=== PATIENT | male | born 1930 | race African-American/Black ===

== ENCOUNTER 2016-12-29 14:14 | Inpatient (IN) | payer MEDICARE ==
[~2016-12-29] VITALS: Ht 175.3 cm; Wt 57.2 kg
[2016-12-29 14:14] VITALS: BP 127/61
[~2016-12-29 14:14] MED LIST: AMBIEN10 MG ORAL
[2016-12-29 14:19] VITALS: BP 127/61
--- NOTE | 2016-12-29 14:30 | Emergency Room Report ---
History of Present Illness General Chief Complaint: Overdose Source: Patient, EMS Present Illness HPI Patient is a 86-year-old male who brought in by EMS after reported overdose on Ambien. Patient reportedly had taken 5 Ambien several hours prior to arrival. Patient reported feeling like sleeping. The patient reports having taken medications as several hours. He denies any other coingestions. The patient states he is followed by Dr. Valladares Allergies: Coded Allergies: No Known Allergies (Unverified , 12/29/16) Patient History Past Medical History: see triage record Reviewed Nursing Documentation: PMH: Agreed, PSxH: Agreed Nursing Documentation-PMH Hx Hypertension: Yes Review of Systems All Other Systems: negative except mentioned in HPI Physical Exam Vital Signs Date Time Temp Pulse Resp B/P Pulse Ox O2 Delivery O2 Flow Rate FiO2 12/29/16 14:08 98.4 68 18 127/61 98 Room Air Sp02 EP Interpretation: reviewed, normal General Appearance: normal inspection, well appearing, no apparent distress, alert, GCS 15, thin, Chronically Ill Head: atraumatic ENT: normal ENT inspection, hearing grossly normal, normal voice Neck: normal inspection, full range of motion, supple, no bony tend Respiratory: normal inspection, lungs clear, normal breath sounds, no respiratory distress, no retraction, no wheezing Cardiovascular #1: regular rate, rhythm, no edema Gastrointestinal: normal inspection, normal bowel sounds, non tender, soft, no guarding, no hernia Genitourinary: no CVA tenderness Musculoskeletal: normal inspection, back normal, normal range of motion Neurologic: normal inspection, alert, oriented x3, responsive, correctional counselor/case manager III-XII nml as tested, speech normal Psychiatric: normal inspection, judgement/insight normal, mood/affect normal Skin: normal inspection, normal color, no rash Medical Decision Making Diagnostic Impression: Primary Impression: Drug overdose ER Course Patient presented for a reported medication overdose. Differential diagnosis included was not limited to polysubstance overdose, nontoxic overdose, suicidal thoughts, among others.Because of complexity of patient's case laboratory testing and imaging studies were ordered.Patient states that he is a DO NOT RESUSCITATE. The patient reportedly wanted to end his life. Patient was noted to have a initial abnormal blood pressure as well as normal respiratory rate. Patient was observed in the emergency department. Poison control was contacted and recommended supportive careDr. Cj Lagos was contacted for inpatient management due cardiac history. Dr. Verde was contacted for pyschiatric consult due to patients medication overdose. Labs Test 12/29/16 14:39 12/29/16 16:00 White Blood Count 11.4 K/UL (4.8-10.8) Red Blood Count 4.71 M/UL (4.70-6.10) Hemoglobin 14.3 G/DL (14.2-18.0) Hematocrit 44.4 % (42.0-52.0) Mean Corpuscular Volume 94 FL (80-99) Mean Corpuscular Hemoglobin 30.4 PG (27.0-31.0) Mean Corpuscular Hemoglobin Concent 32.3 G/DL (32.0-36.0) Red Cell Distribution Width 13.5 % (11.6-14.8) Platelet Count 146 K/UL (150-450) Mean Platelet Volume 8.3 FL (6.5-10.1) Neutrophils (%) (Auto) 90.1 % (45.0-75.0) Lymphocytes (%) (Auto) 5.6 % (20.0-45.0) Monocytes (%) (Auto) 3.9 % (1.0-10.0) Eosinophils (%) (Auto) 0.1 % (0.0-3.0) Basophils (%) (Auto) 0.4 % (0.0-2.0) Sodium Level 137 mEQ/L (135-145) Potassium Level 4.6 mEQ/L (3.4-4.9) Chloride Level 97 mEQ/L (98-107) Carbon Dioxide Level 28 mEQ/L (20-30) Anion Gap 12 (5-15) Blood Urea Nitrogen 33 mg/dL (7-23) Creatinine 1.6 mg/dL (0.7-1.2) Estimat Glomerular Filtration Rate mL/min (>60) Glucose Level 152 mg/dL (74-106) Calcium Level 9.5 mg/dL (8.6-10.2) Total Bilirubin 0.6 mg/dL (0.0-1.2) Aspartate Amino Transf (AST/SGOT) 15 U/L (5-40) Alanine Aminotransferase (ALT/SGPT) 8 U/L (3-41) Alkaline Phosphatase 55 U/L (40-129) Total Protein 7.7 g/dL (6.6-8.7) Albumin 4.1 g/dL (3.5-5.2) Globulin 3.6 g/dL Albumin/Globulin Ratio 1.1 (1.0-2.7) Salicylates Level < 1 mg/dL (10-30) Acetaminophen Level < 10 ug/mL (10-30) Serum Alcohol < 10 mg/dL Urine Color Pale yellow Urine Appearance Clear Urine pH 6 (4.5-8.0) Urine Specific [place] 1.020 (1.005-1.035) Urine Protein 3+ (NEGATIVE) Urine Glucose (UA) Negative (NEGATIVE) Urine Ketones Negative (NEGATIVE) Urine Occult Blood Negative (NEGATIVE) Urine Nitrite Negative (NEGATIVE) Urine Bilirubin Negative (NEGATIVE) Urine Urobilinogen Normal MG/DL (0.0-1.0) Urine Leukocyte Esterase Negative (NEGATIVE) Urine RBC 0-2 /HPF (0 - 0) Urine WBC 0-2 /HPF (0 - 0) Urine Squamous Epithelial Cells Occasional /LPF Urine Bacteria Occasional /HPF (NONE) Urine Opiates Screen Negative (NEGATIVE) Urine Barbiturates Screen Negative (NEGATIVE) Phencyclidine (PCP) Screen Negative (NEGATIVE) Urine Amphetamines Screen Negative (NEGATIVE) Urine Benzodiazepines Screen Negative (NEGATIVE) Urine Cocaine Screen Negative (NEGATIVE) Urine Marijuana (THC) Screen Negative (NEGATIVE) Last Vital Signs Date Time Temp Pulse Resp B/P Pulse Ox O2 Delivery O2 Flow Rate FiO2 12/29/16 14:21 71 18 Room Air 12/29/16 14:19 98.4 127/61 98 Status: unchanged Disposition: PLACE IN OBSERVATION Condition: Stanley Potter Dec 29, 2016 14:30
[2016-12-29 15:33] LABS: MEAN CORPUSCULAR HEMOGLOBIN 30.4 PG (27.0-31.0); MEAN CORPUSCULAR HGB CONC 32.3 G/DL (32.0-36.0); MEAN CORPUSCULAR VOLUME 94 FL (80-99); MEAN PLATELET VOLUME 8.3 FL (6.5-10.1); PLATELET COUNT 146 K/UL (150-450); RED BLOOD COUNT 4.71 M/UL (4.70-6.10); RED CELL DISTRIBUTION WIDTH 13.5 % (11.6-14.8); WHITE BLOOD COUNT 11.4 K/UL (4.8-10.8)
[2016-12-29 15:34] LABS: BASOPHILS % (AUTO) 0.4 % (0.0-2.0); EOSINOPHILS % (AUTO) 0.1 % (0.0-3.0); LYMPHOCYTES % (AUTO) 5.6 % (20.0-45.0); MONOCYTES % (AUTO) 3.9 % (1.0-10.0); NEUTROPHILS % (AUTO) 90.1 % (45.0-75.0)
[2016-12-29 15:41] LABS: ACETAMINOPHEN < 10 ug/mL (10-30); ALANINE AMINOTRANSFERASE 8 U/L (3-41); ALBUMIN/GLOBULIN RATIO 1.1 (1.0-2.7); ALCOHOL < 10 mg/dL; ANION GAP 12 (5-15); ASPARTATE AMINO TRANSFERASE 15 U/L (5-40); CALCIUM 9.5 mg/dL (8.6-10.2); CARBON DIOXIDE 28 mEQ/L (20-30); CHLORIDE 97 mEQ/L (98-107); CREATININE 1.6 mg/dL (0.7-1.2); HEMOLYSIS 5; POTASSIUM 4.6 mEQ/L (3.4-4.9); SODIUM 137 mEQ/L (135-145); TOTAL PROTEIN 7.7 g/dL (6.6-8.7)
[2016-12-29 16:17] VITALS: BP 133/61
[2016-12-29 16:48] LABS: APPEARANCE,URINE CLEAR; KETONES,URINE NEGATIVE (NEGATIVE); LEUKOCYTE ESTERASE ,URINE NEGATIVE (NEGATIVE); NITRITE,URINE NEGATIVE (NEGATIVE); PH,URINE 6 (4.5-8.0); PROTEIN,URINE 3+ (NEGATIVE); UROBILINOGEN,URINE NORMAL MG/DL (0.0-1.0)
[2016-12-29 16:56] LABS: BACTERIA,URINE OCCASIONAL /HPF; RBC,URINE 0-2 /HPF (0 - 0); SQUAMOUS EPITHELIAL CELL,UR OCCASIONAL /LPF (NONE/OCC); WBC,URINE 0-2 /HPF (0 - 0)
[2016-12-29] MEDS ORDERED: Digoxin 0.125mg tab ORAL ONE (19:00)
[2016-12-29 19:30] VITALS: BP 142/76
[2016-12-29] MEDS ORDERED: LORazepam Inj 2mg/ml 1ml IV PRN (20:30)
[2016-12-29] MEDS ORDERED: Mylanta II UD 30ml ORAL PRN (20:30)
[2016-12-29] MEDS ORDERED: Miralax 17gm pkt ORAL PRN (20:30)
[2016-12-29] MEDS ORDERED: Zolpidem 5mg tab ORAL PRN (20:30)
[2016-12-29] MEDS ORDERED: Morphine Sulfate 2mg/ml Inj IVP PRN (20:30)
[2016-12-29] MEDS ORDERED: ALLOPURINOL100 M1 ORAL (21:33)
[2016-12-29] MEDS ORDERED: NORVASC2.5 MG ORAL (21:33)
[2016-12-29] MEDS ORDERED: DIGOXIN0.125 MG/2 ORAL (21:33)
[2016-12-29] MEDS ORDERED: TRADJENTA5 MG PO (21:33)
[2016-12-29] MEDS ORDERED: COREG3.125 MG ORAL (21:33)
[2016-12-29] MEDS ORDERED: CRESTOR10 M2 ORAL (21:33)
[2016-12-29 21:41] VITALS: BP 140/77
[2016-12-30 04:00] VITALS: BP 148/80
[2016-12-30 07:16] LABS: MEAN CORPUSCULAR HEMOGLOBIN 31.2 PG (27.0-31.0); MEAN CORPUSCULAR HGB CONC 33.2 G/DL (32.0-36.0); MEAN CORPUSCULAR VOLUME 94 FL (80-99); MEAN PLATELET VOLUME 8.4 FL (6.5-10.1); PLATELET COUNT 133 K/UL (150-450); RED CELL DISTRIBUTION WIDTH 13.2 % (11.6-14.8); WHITE BLOOD COUNT 10.9 K/UL (4.8-10.8)
[2016-12-30 07:28] LABS: THYROID STIMULATING HORMONE 0.077 uIU/mL (0.300-4.500)
[2016-12-30 07:30] LABS: ALANINE AMINOTRANSFERASE 8 U/L (3-41); ALBUMIN/GLOBULIN RATIO 1.3 (1.0-2.7); ANION GAP 8 (5-15); ASPARTATE AMINO TRANSFERASE 13 U/L (5-40); CALCIUM 9.3 mg/dL (8.6-10.2); CARBON DIOXIDE 30 mEQ/L (20-30); CHLORIDE 97 mEQ/L (98-107); CHOLESTEROL 112 mg/dL (< 200); CHOLESTEROL/HDL RATIO 1.9 (3.3-4.4); CREATININE 1.7 mg/dL (0.7-1.2); HEMOLYSIS 8; LDL CHOLESTEROL (CALC.) 27 mg/dL (60-99); POTASSIUM 4.6 mEQ/L (3.4-4.9); SODIUM 135 mEQ/L (135-145); TOTAL PROTEIN 7.1 g/dL (6.6-8.7)
[2016-12-30 08:00] VITALS: BP 136/72
[2016-12-30 10:33] LABS: BAND NEUTROPHILS % (MANUAL) 0 % (0-8); BASOPHILS % (MANUAL) 1 % (0-2); EOSINOPHILS % (MANUAL) 3 % (0-3); LYMPHOCYTES % (MANUAL) 10 % (20-45); NEUTROPHILS % (MANUAL) 79 % (45-75); PLATELET ESTIMATE DECREASED; PLATELET MORPHOLOGY NORMAL; TOTAL CELLS COUNTED 100
[2016-12-30 10:34] LABS: ANISOCYTOSIS 1+
[2016-12-30 11:46] VITALS: BP 161/77
--- NOTE | 2016-12-30 12:41 | Consultation ---
History of Present Illness General Date patient seen: Dec 30, 2016 Chief Complaint: Overdose Present Illness HPI 86 year old male with hx of ICD, gout, pace maker, taken to ER with ALOC, he took too many Ambien pills because he got upset about some business deal. He is awake now, asymptomatic and want to go home Allergies: Coded Allergies: No Known Allergies (Unverified , 12/29/16) Medication History Scheduled Allopurinol* (Allopurinol*), 100 MG ORAL DAILY, (Reported) Amlodipine Besylate (Norvasc), 2.5 MG ORAL DAILY, (Reported) Carvedilol (Coreg), 3.125 MG ORAL EVERY 12 HOURS, (Reported) Digoxin* (Digoxin*), 0.125 MG ORAL DAILY, (Reported) Rosuvastatin Calcium* (Crestor*), 10 MG ORAL DAILY, (Reported) Scheduled PRN Zolpidem Tartrate* (Ambien*), 12.5 MG ORAL BEDTIME PRN for Insomnia, (Reported) Miscellaneous Medications Linagliptin (Tradjenta), 5 MG PO, (Reported) Patient History Healthcare decision maker Resuscitation status Full Code Advanced Directive on File Past Medical/Surgical History Past Medical/Surgical History: (1) ICD (implantable cardioverter-defibrillator) in place (2) Gout Review of Systems All Other Systems: negative except mentioned in HPI Physical Exam General Appearance: WD/WN, no apparent distress Lines, tubes and drains: peripheral, central line HEENT: normocephalic, anicteric Neck: non-tender, normal alignment Respiratory/Chest: chest wall non-tender, lungs clear Cardiovascular/Chest: normal peripheral pulses, normal rate Abdomen: normal bowel sounds Genitourinary/Rectal: normal genital exam Extremities: normal range of motion Last 24 Hour Vital Signs Date Time Temp Pulse Resp B/P Pulse Ox O2 Delivery O2 Flow Rate FiO2 12/30/16 11:46 98.0 65 20 161/77 98 Room Air 12/30/16 08:00 69 12/30/16 08:00 97.7 73 20 136/72 99 Room Air 12/30/16 04:00 69 12/30/16 04:00 97.8 72 148/80 Room Air 12/30/16 00:00 62 12/29/16 22:41 97.9 75 18 140/77 99 Room Air 12/29/16 21:41 97.9 75 18 140/77 99 Room Air 12/29/16 21:02 76 12/29/16 19:30 97.7 78 20 142/76 98 Room Air 12/29/16 16:17 98.7 63 17 133/61 96 Room Air 12/29/16 14:21 71 18 Room Air 12/29/16 14:19 98.4 68 18 127/61 98 Room Air 12/29/16 14:14 98.4 71 18 127/61 98 Room Air 12/29/16 14:08 98.4 68 18 127/61 98 Room Air Intake and Output 12/29/16 12/30/16 19:00 07:00 Intake Total 0 ml Output Total 300 ml Balance 0 ml -300 ml Intake Oral 0 ml Output Urine Total 300 ml Laboratory Tests Test 12/29/16 14:39 12/29/16 16:00 12/30/16 06:10 White Blood Count 11.4 K/UL (4.8-10.8) H 10.9 K/UL (4.8-10.8) H Red Blood Count 4.71 M/UL (4.70-6.10) 4.50 M/UL (4.70-6.10) L Hemoglobin 14.3 G/DL (14.2-18.0) 14.0 G/DL (14.2-18.0) L Hematocrit 44.4 % (42.0-52.0) 42.3 % (42.0-52.0) Mean Corpuscular Volume 94 FL (80-99) 94 FL (80-99) Mean Corpuscular Hemoglobin 30.4 PG (27.0-31.0) 31.2 PG (27.0-31.0) H Mean Corpuscular Hemoglobin Concent 32.3 G/DL (32.0-36.0) 33.2 G/DL (32.0-36.0) Red Cell Distribution Width 13.5 % (11.6-14.8) 13.2 % (11.6-14.8) Platelet Count 146 K/UL (150-450) L 133 K/UL (150-450) L Mean Platelet Volume 8.3 FL (6.5-10.1) 8.4 FL (6.5-10.1) Neutrophils (%) (Auto) 90.1 % (45.0-75.0) H % (45.0-75.0) Lymphocytes (%) (Auto) 5.6 % (20.0-45.0) L % (20.0-45.0) Monocytes (%) (Auto) 3.9 % (1.0-10.0) % (1.0-10.0) Eosinophils (%) (Auto) 0.1 % (0.0-3.0) % (0.0-3.0) Basophils (%) (Auto) 0.4 % (0.0-2.0) % (0.0-2.0) Sodium Level 137 mEQ/L (135-145) 135 mEQ/L (135-145) Potassium Level 4.6 mEQ/L (3.4-4.9) 4.6 mEQ/L (3.4-4.9) Chloride Level 97 mEQ/L (98-107) L 97 mEQ/L (98-107) L Carbon Dioxide Level 28 mEQ/L (20-30) 30 mEQ/L (20-30) Anion Gap 12 (5-15) 8 (5-15) Blood Urea Nitrogen 33 mg/dL (7-23) H 35 mg/dL (7-23) H Creatinine 1.6 mg/dL (0.7-1.2) H 1.7 mg/dL (0.7-1.2) H Estimat Glomerular Filtration Rate mL/min (>60) mL/min (>60) Glucose Level 152 mg/dL (74-106) H 109 mg/dL (74-106) H Calcium Level 9.5 mg/dL (8.6-10.2) 9.3 mg/dL (8.6-10.2) Total Bilirubin 0.6 mg/dL (0.0-1.2) 0.6 mg/dL (0.0-1.2) Aspartate Amino Transf (AST/SGOT) 15 U/L (5-40) 13 U/L (5-40) Alanine Aminotransferase (ALT/SGPT) 8 U/L (3-41) 8 U/L (3-41) Alkaline Phosphatase 55 U/L (40-129) 58 U/L (40-129) Total Protein 7.7 g/dL (6.6-8.7) 7.1 g/dL (6.6-8.7) Albumin 4.1 g/dL (3.5-5.2) 4.1 g/dL (3.5-5.2) Globulin 3.6 g/dL 3.0 g/dL Albumin/Globulin Ratio 1.1 (1.0-2.7) 1.3 (1.0-2.7) Digoxin Level 1.5 ng/mL (0.5-2.0) Salicylates Level < 1 mg/dL (10-30) L Acetaminophen Level < 10 ug/mL (10-30) L Serum Alcohol < 10 mg/dL Urine Color Pale yellow Urine Appearance Clear Urine pH 6 (4.5-8.0) Urine Specific [place] 1.020 (1.005-1.035) Urine Protein 3+ (NEGATIVE) H Urine Glucose (UA) Negative (NEGATIVE) Urine Ketones Negative (NEGATIVE) Urine Occult Blood Negative (NEGATIVE) Urine Nitrite Negative (NEGATIVE) Urine Bilirubin Negative (NEGATIVE) Urine Urobilinogen Normal MG/DL (0.0-1.0) Urine Leukocyte Esterase Negative (NEGATIVE) Urine RBC 0-2 /HPF (0 - 0) H Urine WBC 0-2 /HPF (0 - 0) Urine Squamous Epithelial Cells Occasional /LPF Urine Bacteria Occasional /HPF (NONE) Urine Opiates Screen Negative (NEGATIVE) Urine Barbiturates Screen Negative (NEGATIVE) Phencyclidine (PCP) Screen Negative (NEGATIVE) Urine Amphetamines Screen Negative (NEGATIVE) Urine Benzodiazepines Screen Negative (NEGATIVE) Urine Cocaine Screen Negative (NEGATIVE) Urine Marijuana (THC) Screen Negative (NEGATIVE) Differential Total Cells Counted 100 Neutrophils % (Manual) 79 % (45-75) H Lymphocytes % (Manual) 10 % (20-45) L Monocytes % (Manual) 7 % (1-10) Eosinophils % (Manual) 3 % (0-3) Basophils % (Manual) 1 % (0-2) Band Neutrophils 0 % (0-8) Platelet Estimate Decreased L Platelet Morphology Normal Anisocytosis 1+ Triglycerides Level 128 mg/dL (< 150) Cholesterol Level 112 mg/dL (< 200) LDL Cholesterol 27 mg/dL (60-99) L HDL Cholesterol 59 mg/dL (> 60) Cholesterol/HDL Ratio 1.9 (3.3-4.4) L Thyroid Stimulating Hormone (TSH) 0.077 uIU/mL (0.300-4.500) Height (Feet): 5 Height (Inches): 9.00 Weight (Pounds): 126 Medications Current Medications Medications (Trade) Dose Ordered Sig/César Route PRN Reason Start Time Stop Time Status Last Admin Dose Admin Acetaminophen (Tylenol) 650 mg Q4H PRN ORAL fever 12/29/16 20:30 01/28/17 20:29 Al Hydroxide/Mg Hydroxide (Mylanta II) 30 ml Q6H PRN ORAL dyspepsia 12/29/16 20:30 01/28/17 20:29 Dextrose (Dextrose 50%) STAT PRN IV Hypoglycemia 12/29/16 20:30 01/28/17 20:29 Lorazepam (Ativan 2mg/ml 1ml) 0.5 mg Q4H PRN IV For Anxiety 12/29/16 20:30 01/05/17 20:29 Morphine Sulfate (Morphine Sulfate) 1 mg Q4H PRN IVP For Pain 4-10 12/29/16 20:30 01/05/17 20:29 Ondansetron HCl (Zofran) 4 mg Q6H PRN IVP Nausea & Vomiting 12/29/16 20:30 01/28/17 20:29 Polyethylene Glycol (Miralax) 17 gm HSPRN PRN ORAL Constipation 12/29/16 20:30 01/28/17 20:29 Zolpidem Tartrate (Ambien) 5 mg HSPRN PRN ORAL Insomnia 12/29/16 20:30 01/28/17 20:29 Assessment/Plan Problem List: (1) Acute encephalopathy ICD Codes: G93.40 - Encephalopathy, unspecified SNOMED: 0993056 (2) Drug overdose ICD Codes: T50.901A - Poisoning by unspecified drugs, medicaments and biological substances, accidental (unintentional), initial encounter SNOMED: 82839333 (3) ICD (implantable cardioverter-defibrillator) in place ICD Codes: Z95.810 - Presence of automatic (implantable) cardiac defibrillator SNOMED: 944469261, 412617519 (4) Gout ICD Codes: M10.9 - Gout, unspecified SNOMED: 06534584 Assessment/Plan telemetry monitoring psych evaluation resume digoxin and coreg, allopurinol dvt prophylaxis check electroltyes resume diet sliding scale STEFANIE LOGAN Dec 30, 2016 12:41
[2016-12-30 13:10] LABS: URIC ACID 4.5 mg/dL (3.0-7.5)
[2016-12-30] MEDS ORDERED: Allopurinol 100mg Tab ORAL SCH (13:30)
[2016-12-30] MEDS ORDERED: Digoxin Elixir 0.125mg ORAL SCH (13:30)
--- NOTE | 2016-12-30 15:41 | Diagnostic Imaging Report ---
Indications: Elevated renal function tests Technique: Transabdominal real-time grayscale and duplex Doppler imaging of the kidneys, retroperitoneum, and urinary bladder was performed Findings: Comparison: None Right kidney measures 10.8 cm in length. Diffuse cortical thinning and increased echogenicity. Multiple circumscribed anechoic cortical masses up to 5 cm diameter.. No stones, other focal lesions, hydronephrosis, or obvious perinephric abnormalities. Left kidney measures 11 cm in length. Diffuse cortical thinning and increased echogenicity. Multiple circumscribed anechoic cortical masses up to 9 cm diameter.. No stones, other focal lesions, hydronephrosis, or obvious perinephric abnormalities. The intrahepatic portion of inferior vena cava is patent and normal caliber. The urinary bladder is distended without obvious abnormality. IMPRESSION: Bilateral atrophic echogenic kidneys compatible with chronic medical renal disease, nonspecific Bilateral renal cortical cysts
[2016-12-30 15:58] VITALS: BP 113/52
--- NOTE | 2016-12-30 16:56 | Consultation ---
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 hernandez on ambien the pt stated that he is going through a lawsuit, in addition unable to have sex or play golf anymore. the pt stated two of his close friends are sick and unable to walk therefore he has DNR and wanted to before this happens. the pt doesn't have current depressive sxs. the pt family came and daughter and wanted to take the pt home. the pt denied si and stated that he didn't know his family care for him that much. Allergies: Coded Allergies: No Known Allergies (Unverified , 12/29/16) Medication History Scheduled Allopurinol* (Allopurinol*), 100 MG ORAL DAILY, (Reported) Amlodipine Besylate (Norvasc), 2.5 MG ORAL DAILY, (Reported) Carvedilol (Coreg), 3.125 MG ORAL EVERY 12 HOURS, (Reported) Digoxin* (Digoxin*), 0.125 MG ORAL DAILY, (Reported) Rosuvastatin Calcium* (Crestor*), 10 MG ORAL DAILY, (Reported) Scheduled PRN Zolpidem Tartrate* (Ambien*), 12.5 MG ORAL BEDTIME PRN for Insomnia, (Reported) Miscellaneous Medications Linagliptin (Tradjenta), 5 MG PO, (Reported) Patient History Limited by: medical condition History Provided By: Patient, Medical Record, PMD Healthcare decision maker Resuscitation status Full Code Advanced Directive on File Review of Systems Psychiatric: Reports: anxiety, depressed feelings, emotional problems, prior hx Physical Exam General Appearance: no apparent distress, alert, thin Neurologic: alert, oriented x 3, responsive, normal mood/affect Last 24 Hour Vital Signs Date Time Temp Pulse Resp B/P Pulse Ox O2 Delivery O2 Flow Rate FiO2 12/30/16 13:28 65 12/30/16 13:28 65 161/72 12/30/16 12:00 87 12/30/16 11:46 98.0 65 20 161/77 98 Room Air 12/30/16 08:00 69 12/30/16 08:00 97.7 73 20 136/72 99 Room Air 12/30/16 04:00 69 12/30/16 04:00 97.8 72 148/80 Room Air 12/30/16 00:00 62 12/29/16 22:41 97.9 75 18 140/77 99 Room Air 12/29/16 21:41 97.9 75 18 140/77 99 Room Air 12/29/16 21:02 76 12/29/16 19:30 97.7 78 20 142/76 98 Room Air Intake and Output 12/29/16 12/30/16 19:00 07:00 Intake Total 0 ml Output Total 300 ml Balance 0 ml -300 ml Intake Oral 0 ml Output Urine Total 300 ml Laboratory Tests Test 12/30/16 06:10 White Blood Count 10.9 K/UL (4.8-10.8) H Red Blood Count 4.50 M/UL (4.70-6.10) L Hemoglobin 14.0 G/DL (14.2-18.0) L Hematocrit 42.3 % (42.0-52.0) Mean Corpuscular Volume 94 FL (80-99) Mean Corpuscular Hemoglobin 31.2 PG (27.0-31.0) H Mean Corpuscular Hemoglobin Concent 33.2 G/DL (32.0-36.0) Red Cell Distribution Width 13.2 % (11.6-14.8) Platelet Count 133 K/UL (150-450) L Mean Platelet Volume 8.4 FL (6.5-10.1) Neutrophils (%) (Auto) % (45.0-75.0) Lymphocytes (%) (Auto) % (20.0-45.0) Monocytes (%) (Auto) % (1.0-10.0) Eosinophils (%) (Auto) % (0.0-3.0) Basophils (%) (Auto) % (0.0-2.0) Differential Total Cells Counted 100 Neutrophils % (Manual) 79 % (45-75) H Lymphocytes % (Manual) 10 % (20-45) L Monocytes % (Manual) 7 % (1-10) Eosinophils % (Manual) 3 % (0-3) Basophils % (Manual) 1 % (0-2) Band Neutrophils 0 % (0-8) Platelet Estimate Decreased L Platelet Morphology Normal Anisocytosis 1+ Sodium Level 135 mEQ/L (135-145) Potassium Level 4.6 mEQ/L (3.4-4.9) Chloride Level 97 mEQ/L (98-107) L Carbon Dioxide Level 30 mEQ/L (20-30) Anion Gap 8 (5-15) Blood Urea Nitrogen 35 mg/dL (7-23) H Creatinine 1.7 mg/dL (0.7-1.2) H Estimat Glomerular Filtration Rate mL/min (>60) Glucose Level 109 mg/dL (74-106) H Uric Acid 4.5 mg/dL (3.0-7.5) Calcium Level 9.3 mg/dL (8.6-10.2) Total Bilirubin 0.6 mg/dL (0.0-1.2) Aspartate Amino Transf (AST/SGOT) 13 U/L (5-40) Alanine Aminotransferase (ALT/SGPT) 8 U/L (3-41) Alkaline Phosphatase 58 U/L (40-129) Total Creatine Kinase 122 U/L (38-174) Total Protein 7.1 g/dL (6.6-8.7) Albumin 4.1 g/dL (3.5-5.2) Globulin 3.0 g/dL Albumin/Globulin Ratio 1.3 (1.0-2.7) Triglycerides Level 128 mg/dL (< 150) Cholesterol Level 112 mg/dL (< 200) LDL Cholesterol 27 mg/dL (60-99) L HDL Cholesterol 59 mg/dL (> 60) Cholesterol/HDL Ratio 1.9 (3.3-4.4) L Thyroid Stimulating Hormone (TSH) 0.077 uIU/mL (0.300-4.500) Height (Feet): 5 Height (Inches): 9.00 Weight (Pounds): 126 Medications Current Medications Medications (Trade) Dose Ordered Sig/César Route PRN Reason Start Time Stop Time Status Last Admin Dose Admin Acetaminophen (Tylenol) 650 mg Q4H PRN ORAL fever 12/29/16 20:30 01/28/17 20:29 Al Hydroxide/Mg Hydroxide (Mylanta II) 30 ml Q6H PRN ORAL dyspepsia 12/29/16 20:30 01/28/17 20:29 Allopurinol (Zyloprim) 100 mg DAILY ORAL 12/30/16 13:30 01/29/17 13:29 12/30/16 13:28 Carvedilol (Coreg) 3.125 mg EVERY 12 HOURS ORAL 12/30/16 13:30 01/29/17 13:29 12/30/16 13:28 Dextrose (Dextrose 50%) STAT PRN IV Hypoglycemia 12/29/16 20:30 01/28/17 20:29 Digoxin (Lanoxin) 0.125 mg DAILY ORAL 12/30/16 13:30 01/29/17 13:29 12/30/16 13:28 Lorazepam (Ativan 2mg/ml 1ml) 0.5 mg Q4H PRN IV For Anxiety 12/29/16 20:30 01/05/17 20:29 Morphine Sulfate (Morphine Sulfate) 1 mg Q4H PRN IVP For Pain 4-10 12/29/16 20:30 01/05/17 20:29 Ondansetron HCl (Zofran) 4 mg Q6H PRN IVP Nausea & Vomiting 12/29/16 20:30 01/28/17 20:29 Polyethylene Glycol (Miralax) 17 gm HSPRN PRN ORAL Constipation 12/29/16 20:30 01/28/17 20:29 Zolpidem Tartrate (Ambien) 5 mg HSPRN PRN ORAL Insomnia 12/29/16 20:30 01/28/17 20:29 Assessment/Plan Status: doing well, stable Assessment/Plan Adjustment d/o -no psychotropics -the pt doesn't meet the criteria for hold nor [facility] Dina Verde M.D. Dec 30, 2016 16:56
--- NOTE | 2016-12-30 17:46 | History and Physical Report ---
DATE OF ADMISSION: 12/29/2016 TIME SEEN: 3 p.m. CONSULTANTS: 1. Dina Verde M.D. 2. Nestor Garnett M.D. 3. Taras Loza M.D. CHIEF COMPLAINT: Overdose on Ambien, suicidal attempt, congestive heart failure. BRIEF HISTORY: The patient is an 86-year-old male who lives at home, yesterday attempted suicide by taking 7 or 8 Ambien. He doing that afterwards but currently calm in bed, no complaints. No chest pain. No shortness of breath. No nausea, vomiting, or diarrhea. PAST MEDICAL HISTORY: Congestive heart failure. PAST SURGICAL HISTORY: Pacer. MEDICATIONS: Zyloprim, Coreg, Lanoxin, Tylenol, morphine, MiraLAX, Zofran, Ambien, Ativan, Mylanta, dextrose. ALLERGIES: Denies. SOCIAL HISTORY: No smoking. No alcohol. No intravenous drug use. FAMILY HISTORY: Noncontributory. PHYSICAL EXAMINATION: GENERAL: Calm, in bed, oriented x3, no acute distress. VITAL SIGNS: Temperature 98 degrees, pulse 65, respirations 20, and blood pressure 161/72. CARDIOVASCULAR: No murmur. LUNGS: Distant and clear. ABDOMEN: Bowel sound positive. Soft, nontender, and nondistended. EXTREMITIES: No cyanosis, clubbing, or edema. NEUROLOGIC: The patient moves all extremities, but slightly weak. LABORATORY DATA: White count 10.9, hemoglobin and hematocrit 14 over 42, platelets 133,000. Chloride 97, BUN and creatinine 35 and 1.7, glucose 109. Urine toxicology is normal. Urinalysis 3+ protein. ASSESSMENT: 1. Overdosed on Ambien. 2. Suicidal attempt. 3. Congestive heart failure. PLAN: 1. Continue premedications. 2. Blood pressure control. 3. Dietary followup. 4. Psychiatric treatment. 5. We will continue to follow this patient. 6. CBC and BMP in the morning. Cj Lagos D.O. DR: Ceci JOB#: [id number] CC:
--- NOTE | 2016-12-31 11:16 | Cardiology Report ---
APPROVED REPORT EXAM: Two-dimensional and M-mode echocardiogram with Doppler and color Doppler. INDICATION Left Ventricular Function M-Mode DIMENSIONS IVSd1.7 (0.7-1.1cm)Left Atrium (MM)3.3 (1.6-4.0cm) LVDd5.0 (3.5-5.6cm)Aortic Root3.1 (2.0-3.7cm) PWd1.6 (0.7-1.1cm)Aortic Cusp Exc.1.9 (1.5-2.0cm) LVDs3.4 (2.5-4.0cm) PWs2.4 cm Normal left ventricular chamber size, systolic function and wall motion. Left ventricular ejection fraction estimated to be 55 %. Mild left ventricular hypertrophy. Small pericardial effusion. All other cardiac chamber sizes are within normal limits. Mild focal aortic valve sclerosis with adequate cusp excursion. Mildly thickened mitral valve leaflets with normal excursion. Mild mitral annulus and aortic root calcification. Normal pulmonic valve structure. Normal tricuspid valve structure. IVC at normal size with physiologic collapse. A color flow and spectral Doppler study was performed and revealed: Moderate aortic regurgitation. Mild to moderate mitral regurgitation. Mitral diastolic velocities suggest reduced left ventricular relaxation (Grade I). Mild tricuspid regurgitation. Tricuspid systolic velocities suggests peak right ventricular systolic pressure of 41 mmHg, consistent with mild pulmonary hypertension. No pulmonic regurgitation present.
--- NOTE | 2016-12-31 13:27 | Discharge Summary ---
Discharge Summary Hospital Course Date of Admission Dec 29, 2016 at 20:05 Date of Discharge Dec 30, 2016 at 17:35 Admitting Diagnosis MEDICATION OVERDOSE HPI Sunita Pringle is a 86 year old male who was admitted on Dec 29, 2016 at 20:05 for Medication Overdose Hospital Course [id number] Discharge Discharge Disposition Patient was discharged to Home Discharge Diagnoses: Elvi Gage NP Dec 31, 2016 13:27
--- NOTE | 2017-01-01 09:00 | Discharge Summary 2 SIG ---
DATE OF ADMISSION: 12/29/2016 DATE OF DISCHARGE: 12/30/2016 CONSULTANTS: 1. Dina Verde M.D. 2. Nestor Garnett M.D. BRIEF HOSPITAL COURSE: The patient is an 86-year-old male who presented to ED after reported overdose of Ambien. Reportedly, he had taken 5 pills of Ambien several hours prior to arrival. The patient stated that he is going through a lawsuit and two of his close friends are sick and had been unable to do his regular activities. He wanted to end his life before all this happened. On arrival to ED, he was noted to have initial abnormal pressure as well as normal respiratory rate. Poison Control was contacted and recommended supportive care. He has a history of cardiac disease and has an automatic implanted cardioverter defibrillator. The patient was then admitted for psychiatric evaluation due to patient's medication overdose. He was seen by Dr. Verde. The patient's and daughter wanted to take him home. The patient is awake and asymptomatic. The patient does not meet the criteria for hold nor and no need for psychotropics. The patient was eventually cleared for discharge home and patient was discharged with family. FINAL DIAGNOSES: 1. Acute toxic encephalopathy. 2. Adjustment disorder. 3. Stage II suicidal attempts. 4. Congestive heart failure. 5. Blood pressure control. Due to the following day, the patient had an echocardiogram done that showed ejection fraction of 55% with normal left ventricular size, function, and wall motion and right ventricular systolic pressure of 41 consistent with mild pulmonary hypertension. 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 DISPOSITION: The patient was discharged home. DISCHARGE MEDICATIONS: Refer to medication list. FOLLOWUP: Discharged home. Advised to follow up with PMD in a week. Cj Lagos D.O. I have been assigned to dictate discharge summary on this account and I was not involved in the patient's management. Elvi Gage N.P. DR: VERÓNICA JOB#: [id number] CC:
== END 2016-12-30 17:35 | disposition home or self-care (01) | DRG 917 ==
LOC: EDBD 14:14 → EMR 15:01 → EDBEDREQ 19:55 → 2E 20:05 → OBSVTOIN 20:05 → EDBEDREQ 21:59
DX: T42.6X2A Poisoning by other antiepileptic and sedative-hypnotic drugs, intentional self-harm, initial encounter (principal); G92 Toxic encephalopathy; I27.2 Other secondary pulmonary hypertension; I50.9 Heart failure, unspecified; Y92.019 Unspecified place in single-family (private) house as the place of occurrence of the external cause; Z66 Do not resuscitate; F43.21 Adjustment disorder with depressed mood; M10.9 Gout, unspecified; Z95.810 Presence of automatic (implantable) cardiac defibrillator
CPT/HCPCS: 36415; 76775; 80053; 80061; 80162; 80300; 80329; 81003; 82550; 84443; 84550; 85007; 85025; 93005; 93306